=== PATIENT | female | born 1950 | race Caucasian/White ===

== ENCOUNTER 2021-04-01 12:18 | Outpatient (CLI) | payer MEDICARE, SELFPAY ==
--- NOTE | ~2021-04-01 | US_ITS ---
EXAMINATION: US venous doppler [facility] DATE: 04/01/2021 12:50 INDICATION: Left lower limb swelling TECHNIQUE: Hernandes scale images without and with compression and Doppler images of the left lower extrem ity veins were obtained. COMPARISON: None FINDINGS: There is thrombosis of the left posterior tibial veins. The left common femoral vein, profu nda femoral vein, femoral vein, popliteal vein, peroneal trunk, and greater saphenous vein are patent . IMPRESSION: 1. Thrombosis of the left posterior tibial veins. Reviewed, dictated and finalized at location A. [facility]
== END 2021-04-01 12:19 | disposition home or self-care (01) ==
LOC: ANHIMG 12:24
PROVIDERS: PCP Internal Medicine; Visit Provider Internal Medicine
DX: R60.0 Localized edema (principal); I82.442 Acute embolism and thrombosis of left tibial vein
CPT/HCPCS: 93971

== ENCOUNTER → 2021-04-07 09:59 | Outpatient (CLI) | payer MEDICARE, SELFPAY ==
--- NOTE | ~2021-04-07 | DEXA_ITS ---
Bone Density Report Name: NANCY MACIAS Age: 70 Sex: Female Ethnicity: White Date of : 1950 Indication: postmenopausal; screening for osteoporosis; history of glucocorticoids; rheumatoid arthritis; Referring Provider: ABBY, SILVA Santillan Study: Bone densitometry was performed. Exam Date: April 07, 2021 Accession number: [id number] Bone Density: Region BMD T-score Z-score Classification AP Spine (L1, L2, L3) 0.870 -1.3 0.7 Osteopenia Femoral Neck (Left) 0.581 -2.4 -0.6 Osteopenia Total Hip (Left) 0.712 -1.9 -0.4 Osteopenia Femoral Neck (Right) 0.610 -2.2 -0.4 Osteopenia Total Hip (Right) 0.758 -1.5 0.0 Osteopenia Total Hip Mean 0.735 -1.7 -0.2 Osteopenia World Health Organization criteria for BMD impression classify patients as: Normal (T-score at or above -1.0), Osteopenia (T-score between -1.0 and -2.5), or Osteoporosis (T-score at or below -2.5). 10-year Fracture Risk(1): Major Osteoporotic Fracture 26% Hip Fracture 7.6% Reported Risk Factors: [place] (), Neck BMD=0.581, BMI=22.9, glucocorticoids, rheumatoid arthritis (1) FRAX(R) Version 3.08. Fracture probability calculated for an untreated patient. Fracture probability may be lower if the patient has received treatment. Clinical Information Provided by Patient: Has taken Glucocorticoids Has rheumatoid arthritis Has used the following medications: Vitamin D, Calcium Patient maximum height was 58.88 Menopause Age: 51 Drinks caffeinated beverages Onset of menses at age 14 Number of children 0 Impression: The patient has low bone mass, based on the Left Femoral Neck T-score. The patient has an estimated ten-year risk of hip fracture of 7.6% and an estimated ten-year risk of major fracture of 26%, based on the WHO FRAX algorithm. The patient has risk factors, including: history of glucocorticoid therapy. Discussion: BONE DENSITY IS LOW AT ONE OR MORE SKELETAL SITES. THE PATIENT'S BMD AND CLINICAL RISK FACTORS CONTRIBUTE TO THIS PATIENT'S HIGH RISK OF FRACTURE. This patient's lowest T-score is low at one or more skeletal sites. It meets the World Health Organization's (WHO) criteria for ?low bone mass? (T-score between -1.0 and -2.5). The patient's 10-year risk of hip fracture and 10 year risk of a major osteoporotic fracture as calculated by FRAX exceeds the threshold where pharmacological therapy is recommended by the National Osteoporosis Foundation (NOF). However, all treatment decisions require clinical judgment and consideration of individual patient factors, including patient preferences, comorbidities, previous drug use, risk factors not captured in the FRAX model (e.g., frailty, falls, vitamin D deficiency, increased bone turnover, interval significant decline in bone density) and possible under or overestimation o
== END ==
PROVIDERS: PCP Internal Medicine; Visit Provider Internal Medicine
DX: M85.88 Other specified disorders of bone density and structure, other site (principal); M85.852 Other specified disorders of bone density and structure, left thigh; M85.851 Other specified disorders of bone density and structure, right thigh
CPT/HCPCS: 77080

== ENCOUNTER 2021-06-17 05:42 | Emergency (ER) | payer MEDICARE, SELFPAY ==
[2021-06-17 05:47] VITALS: BP 163/69; PULSE 87; RESP 14; TEMP 36.9; O2SAT 99
--- NOTE | 2021-06-17 06:30 | ED.WOUNDLAC ---
HPI - Wound/Laceration General Chief Complaint: Wound/Laceration Stated Complaint: suture removal - leg Time Seen by Provider: 06/17/21 06:05 Source: patient Mode of arrival: ambulatory Limitations: no limitations History of Present Illness HPI narrative: Patient is a 70-year-old female here for suture removal right leg. Patient states that she got her right leg while vacationing in [place], was seen in the ER and had a repaired and was placed on oral antibiotics. Patient states that she saw her PCP yesterday and was placed on 1 more week of oral antibiotics. Patient denies any calf pain or swelling. Patient denies any fever or chills. Related Data Home Medications Medication Instructions Recorded Confirmed amlodipine 5 mg PO DAILY 06/17/21 06/17/21 apixaban [Eliquis] 5 mg PO BID 06/17/21 06/17/21 cephalexin 500 mg PO TID 06/17/21 06/17/21 duloxetine 60 mg PO BID 06/17/21 06/17/21 lisinopril 5 mg PO DAILY 06/17/21 06/17/21 Allergies Allergy/AdvReac Type Severity Reaction Status Date / Time shellfish derived Allergy Intermediate VOMITING/DI Verified 06/17/21 06:00 ARRHEA niacin Allergy Unknown Other Verified 06/17/21 06:00 Penicillins Allergy Unknown UNKNOWN Verified 06/17/21 06:00 Review of Systems Review of Systems: All systems reviewed & are unremarkable except as noted in HPI and below PMFSH Comments Past medical history: DVT Family history: Hypertension Social history: Non-smoker no EtOH or drug use Exam Const: General: no acute distress and alert Orientation/consciousness: patient oriented x3 HENMT: Head: normal to inspection Resp: Effort & Inspection: normal respiratory effort Skin: Other: Negative for discharge. Erythema surrounding the the wound. Dehiscence of some of the sutures, negative for calf pain or tenderness, neurovascular intact Course Vital Signs Vital signs: Vital Signs Temperature 36.9 C 06/17/21 05:47 Pulse Rate 87 06/17/21 05:47 Respiratory Rate 14 06/17/21 05:47 Blood Pressure 163/69 H 06/17/21 05:47 Pulse Oximetry 99 06/17/21 05:47 Temperature 36.9 C 06/17/21 05:47 Pulse Rate 87 06/17/21 05:47 Respiratory Rate 14 06/17/21 05:47 Blood Pressure 163/69 H 06/17/21 05:47 Pulse Oximetry 99 06/17/21 05:47 Discharge Plan Discharge Clinical Impression: Encounter for removal of sutures Patient Disposition: Home, Self-Care Condition: Improved Instructions: Care For Your Stitches (ED), Acute Wounds (ED) Prescriptions: No Action amlodipine 5 mg tablet 5 mg PO DAILY RF: 0 cephalexin 500 mg capsule 500 mg PO TID RF: 0 lisinopril 5 mg tablet 5 mg PO DAILY RF: 0 duloxetine 30 mg capsule,delayed release(DR/EC) 60 mg PO BID RF: 0 Eliquis 5 mg tablet 5 mg PO BID RF: 0 Follow-up/Referrals: White,Hanh Santillan MD [Primary Care Provider] - 06/19/21 Time of Disposition: 06:36
[2021-06-17 07:16] VITALS: BP 138/80; PULSE 68; RESP 14; O2SAT 94
== END 2021-06-17 07:16 | disposition home or self-care (01) ==
LOC: ANHED 06:50
PROVIDERS: Emergency Provider Emergency Medicine; PCP Internal Medicine
DX: S81.811D Laceration without foreign body, right lower leg, subsequent encounter (principal); I10 Essential (primary) hypertension; Z86.718 Personal history of other venous thrombosis and embolism; Z79.01 Long term (current) use of anticoagulants; X58.XXXD Exposure to other specified factors, subsequent encounter
CPT/HCPCS: 99281

== ENCOUNTER → 2021-08-14 12:28 | Outpatient (CLI) | payer MEDICARE, SELFPAY ==
--- NOTE | ~2021-08-14 | XR_ITS ---
EXAMINATION: XR chest 2V DATE: 08/14/2021 12:48 INDICATION: Lung crackles on auscultation. TECHNIQUE: Frontal and lateral views of the chest were obtained. COMPARISON: None. FINDINGS: The chest demonstrates clear lungs without pneumonia, pleural effusion, or pneumothorax. Th e heart size is normal. Pectus excavatum is noted. IMPRESSION: 1. No acute cardiopulmonary disease. Reviewed, dictated and finalized at location B.
== END ==
PROVIDERS: PCP Internal Medicine; Visit Provider Internal Medicine
DX: R09.89 Other specified symptoms and signs involving the circulatory and respiratory systems (principal)
CPT/HCPCS: 71046

== ENCOUNTER 2021-12-02 14:02 | Emergency (ER) | payer MEDICARE, SELFPAY ==
[2021-12-02 14:32] VITALS: BP 100/49; PULSE 75; RESP 16; TEMP 36.5; O2SAT 99
--- NOTE | 2021-12-02 14:47 | ED.WOUNDLAC ---
HPI - Wound/Laceration General Chief Complaint: Wound/Laceration Stated Complaint: fall, left leg lac Time Seen by Provider: 12/02/21 14:42 History of Present Illness HPI narrative: pt working in yard and fell cutting left le above ankle on metal chair tdap up tp date this year able to walk no issues after and says thin skin tears easily bp low at triage but wrong size cuff and in room normal wiht fitting cuff no other head neck or back injury or issues bleeding controlled Related Data Home Medications Medication Instructions Recorded Confirmed amlodipine 5 mg tablet 5 mg PO DAILY 06/17/21 06/17/21 apixaban 5 mg tablet (Eliquis) 5 mg PO BID 06/17/21 06/17/21 cephalexin 500 mg capsule 500 mg PO TID 06/17/21 06/17/21 duloxetine 30 mg capsule,delayed 60 mg PO BID 06/17/21 06/17/21 release lisinopril 5 mg tablet 5 mg PO DAILY 06/17/21 06/17/21 Allergies Allergy/AdvReac Type Severity Reaction Status Date / Time shellfish derived Allergy Intermediate VOMITING/DI Verified 06/17/21 06:00 ARRHEA niacin Allergy Unknown Other Verified 06/17/21 06:00 Penicillins Allergy Unknown UNKNOWN Verified 06/17/21 06:00 Review of Systems Constitutional: Comments: CONSTITUTIONAL: Denies fever, chills, or sweats. EYES: Denies visual changes, redness, or discharge. ENT: Denies rhinorrhea, congestion, sore throat, or otalgia. CARDIOVASCULAR: Denies chest pain, palpitations, or edema. RESPIRATORY: Denies cough or dyspnea. GASTROINTESTINAL: Denies abdominal pain, nausea, vomiting, or diarrhea. GENITOURINARY: Denies dysuria or hematuria. SKIN: Denies rash or itching. lac left le MUSCULOSKELETAL: Denies back pain, joint pain, or myalgia. NEUROLOGIC: Denies headache, numbness, or weakness. PSYCHIATRIC: Denies anxiety or depression. Exam Const: General: healthy appearing Nutritional Appearance: well nourished Orientation/consciousness: patient oriented x3 Limitations: no limitations HENMT: Head: normal to inspection Eyes: Conjunctivae: conjunctivae normal Pupils: Equal, round and reactive pupils present EOM: EOMs intact bilaterally Chest: Other: normal speech and respirations Resp: Effort & Inspection: normal respiratory effort Cardio: Other: pulses intact Skin: General skin exam: normal color Other: C shaped 3inch lac superficial skin tear left inner lower leg above ankle superficial no bleeding around 5mm wound margin separations under tention explained with thin skin sutures tear through it needing to closely approx with steristrips and tegaderm and pt good with this Neuro: General: patient oriented x3, moves all extremities and CN's II-XI intact bilaterally Speech: normal speech Gait exam (Neuro): Normal gait present Extrem: General: no clubbing, cyanosis or edema and no pedal edema Other: no bony tend or abnormality Psych: Mental Status: mental status grossly normal Course Vital Signs Vital signs: Vital Signs Temperature 36.5 C 12/02/21 14:32 Pulse Rate 75 12/02/21 14:32 Respiratory Rate 16 12/02/21 14:32 Blood Pressure 100/49 L 12/02/21 14:32 Pulse Oximetry 99 12/02/21 14:32 Oxygen Delivery Room Air 12/02/21 14:32 Temperature 36.5 C 12/02/21 14:32 Pulse Rate 75 12/02/21 14:32 Respiratory Rate 16 12/02/21 14:32 Blood Pressure 100/49 L 12/02/21 14:32 Pulse Oximetry 99 12/02/21 14:32 Oxygen Delivery Room Air 12/02/21 14:32 Restraint Face to Face Eval ED Evaluation Findings Pt's immediate situation:: rechecked wound after nurse applied steristrips and tegaderm good approx wound from skin tear pt ready to go at 1549 Discharge Plan Discharge Clinical Impression: Skin tear Patient Disposition: Home, Self-Care Condition: Stable Instructions: Antibiotic Form, Skin Avulsion (ED) Additional Instructions: keep wound covering on and call your doc for further care, after 3 days if starts to fall off on own that's ok, return if new issues Prescriptions
[2021-12-02] MEDS: LIDOCAINE, EPINEPHRINE, TETRACAINE VISCOUS SOLN 3 ML TOPICAL (15:02)
[2021-12-02 16:04] VITALS: BP 140/77; PULSE 67; RESP 20; O2SAT 99
== END 2021-12-02 16:05 | disposition home or self-care (01) ==
PROVIDERS: Emergency Provider Emergency Medicine; PCP Internal Medicine
DX: S81.812A Laceration without foreign body, left lower leg, initial encounter (principal); W26.8XXA Contact with other sharp object(s), not elsewhere classified, initial encounter
CPT/HCPCS: 99282

== ENCOUNTER 2023-08-02 10:13 | Outpatient (CLI) | payer MEDICARE, SELFPAY ==
--- NOTE | ~2023-08-02 | DEXA_ITS ---
Bone Density Report Name: NANCY MACIAS Age: 72 Sex: Female Ethnicity: P[place] Date of : 1950 Indication: osteopenia; Referring Provider: SILVA MORA Study: Bone densitometry was performed. Exam Date: August 02, 2023 Accession number: [id number] Bone Density: Region BMD T-score Z-score Classification AP Spine (L1, L2, L3) 0.892 -1.1 1.0 Osteopenia Femoral Neck (Left) 0.538 -2.8 -0.9 Osteoporosis Total Hip (Left) 0.682 -2.1 -0.5 Osteopenia Femoral Neck (Right) 0.580 -2.4 -0.5 Osteopenia Total Hip (Right) 0.757 -1.5 0.1 Osteopenia Total Hip Mean 0.720 -1.8 -0.2 Osteopenia World Health Organization criteria for BMD impression classify patients as: Normal (T-score at or above -1.0), Osteopenia (T-score between -1.0 and -2.5), or Osteoporosis (T-score at or below -2.5). 10-year Fracture Risk: FRAX not reported because: Some T-score for Spine Total or Hip Total or Femoral Neck at or below -2.5 Previous Exams: Region Exam Age BMD T-score BMD Change BMD Change Date g/cm2 vs Baseline vs Previous AP Spine(L1, L2, L3) 08/02/2023 72 0.892 -1.1 0.022 0.022 04/07/2021 70 0.870 -1.3 Total Hip(Left) 08/02/2023 72 0.682 -2.1 -0.029* -0.029* 04/07/2021 70 0.712 -1.9 Total Hip(Right) 08/02/2023 72 0.757 -1.5 -0.001 -0.001 04/07/2021 70 0.758 -1.5 *Denotes significance at 95% confidence level, LSC for AP Spine = 0.022 g/cm2, LSC for Total Hip = 0.027 g/cm2 Clinical Information Provided by Patient: Has used the following medications: Vitamin D, Calcium Patient maximum height was 59.8 Menopause Age: 51 Drinks caffeinated beverages Onset of menses at age 14 Number of children 0 Impression: The patient has osteoporosis, based on the Left Femoral Neck T-score. The BMD for the Total Hip(Left) decreased, changing by -0.029 since the last DXA exam. Discussion: INCREASED RISK OF FRACTURE. BONE DENSITY IS UNDESIRABLY LOW AT ONE OR MORE SKELETAL SITES, CONSISTENT WITH POSTMENOPAUSAL OSTEOPOROSIS. This patient's lowest T-score meets the World Health Organization's (WHO) criteria for osteoporosis at one or more sites (T-score -2.5 or below). In untreated patients, the risk of osteoporotic fracture increases approximately two-fold for each 1.0 SD decrease in T-score. Low bone density is not the only risk factor for fracture; also consider factors such as patient's age, frailty or poor health, r
== END 2023-08-02 10:14 ==
LOC: MICIMG 10:14
PROVIDERS: PCP Internal Medicine; Visit Provider Internal Medicine
DX: Z78.0 Asymptomatic menopausal state (principal); M85.89 Other specified disorders of bone density and structure, multiple sites; M81.0 Age-related osteoporosis without current pathological fracture
CPT/HCPCS: 77080